=== PATIENT | female | born 1970 | race Caucasian/White ===

== ENCOUNTER 2016-11-23 22:08 | Emergency (ER) | payer MEDICAID ==
[2016-11-23] MEDS ORDERED: ASPIRIN 81 MG CHEW TAB ONE (22:28)
[2016-11-23] MEDS ORDERED: METOPROLOL 5 MG/5 ML VIAL IV ONE (23:41)
== END 2016-11-24 01:43 | disposition home or self-care (01) ==
LOC: ER 22:38
DX: R07.2 Precordial pain (principal); I10 Essential (primary) hypertension
CPT/HCPCS: 36415; 71010; 80053; 82550; 83735; 84484; 85025; 85379; 85610; 85730; 93005; 96374